=== PATIENT | male | born 1970 | race Caucasian/White ===

== ENCOUNTER 2019-12-31 02:55 | Emergency (ER) | payer OTHER ==
[~2019-12-31] VITALS: Ht 172.7 cm; Wt 65.8 kg
--- NOTE | 2019-12-31 03:08 | NUR ---
Pt in room 2B is homeless. AO x 4. Brought himself in to ER because of neck pain, cannot recall when exactly it started but has been experiencing it "few" days [employer]. Pt describes it as acute and worsens when neck is being turned, rates pain as 5-7/10. Respirations are even and unlabored. Not in any acute distress. BP: 149/101. HR: 113. No GI/ complaints. Ambulates in steady gait. Bed locked in position. Fall and safety precautions maintained.
[2019-12-31] MEDS ORDERED: IV NORMAL SALINE 1000 ML BAG IV ONE ×2 (03:15→07:15)
[2019-12-31] MEDS ORDERED: HYDROCODONE/APAP 5-325MG TABLET PO ONE (03:15)
--- NOTE | 2019-12-31 03:15 | NUR ---
Dr. Phillips at bedside for MSE.
[2019-12-31 03:38] LABS: BASOPHILS # (AUTO) 0.1 K/uL (0.0-8.0); BASOPHILS % (AUTO) 0.5 % (0.0-2.0); EOSINOPHILS # (AUTO) 0.4 K/uL (0.0-0.7); EOSINOPHILS % (AUTO) 1.8 % (0.0-7.0); HEMOGLOBIN 13.6 g/dL (12.5-16.3); LYMPHOCYTES # (AUTO) 2.2 K/uL (20.0-40.0); LYMPHOCYTES % (AUTO) 10.5 % (20.5-51.5); MEAN CORPUSCULAR HEMOGLOBIN 30.5 uug (23.8-33.4); MEAN CORPUSCULAR HGB CONC 33 g/dL (32.5-36.3); MEAN CORPUSCULAR VOLUME 92.3 fL (73.0-96.2); MONOCYTES # (AUTO) 1.4 K/uL (2.0-10.0); MONOCYTES % (AUTO) 6.3 % (0.0-11.0); NEUTROPHILS # (AUTO) 17.4 K/uL (1.8-8.9); NEUTROPHILS % (AUTO) 80.9 % (38.5-71.5); PLATELET COUNT (AUTO) 435 K/uL (152-348); RED BLOOD CELL COUNT(AUTO) 4.44 MIL/uL (4.06-5.63); WHITE BLOOD COUNT (AUTO) 21.5 K/uL (3.6-10.2)
[2019-12-31] MEDS ORDERED: HYDROCODONE/APAP 5-325MG TABLET ONE (03:43)
[2019-12-31 03:52] LABS: BILIRUBIN,DIRECT 0.1 mg/dL (0.0-0.2); BILIRUBIN,TOTAL 0.4 mg/dL (0.2-1.0); CREATININE 1.1 mg/dL (0.6-1.3); POTASSIUM 4.1 mmol/L (3.5-5.1); TOTAL PROTEIN, SERUM 7.1 g/dL (6.4-8.2)
--- NOTE | 2019-12-31 04:09 | NUR ---
RN witnessed pt signing Consent form for contrast. Pt down for CT with contrast, stable condition.
[2019-12-31] MEDS ORDERED: VANCOMYCIN IV 1,000 MG in IV DEXTROSE 5% 250 ML IV ONE (04:15)
[2019-12-31] MEDS ORDERED: IV NORMAL SALINE 250 ML IV ONE (04:18)
[2019-12-31] MEDS ORDERED: SWABABLE VALVE TRANSFER SET EA MC ONE (04:18)
[2019-12-31] MEDS ORDERED: IOHEXOL 300MG/ML 100 ML INFUS..BTL ONE (04:18)
[2019-12-31] MEDS ORDERED: VANCOMYCIN IV 200 ML ONE (04:26)
--- NOTE | 2019-12-31 04:34 | NUR ---
Pt back from CT in stable condition.
[2019-12-31] MEDS ORDERED: CEFTRIAXONE 1 G in IV DEXTROSE 5% 50 ML IV ONE (05:00)
[2019-12-31] MEDS ORDERED: CEFTRIAXONE /D5W 50ML IVPB **ER PYXIS IV ONE (05:04)
--- NOTE | 2019-12-31 05:13 | NUR ---
Dr Phillips wants to admit patient for Cellulitis/Poss Neck Abscess. Insurance is being contacted by foreign exchange clerk at this time.
--- NOTE | 2019-12-31 05:30 | NUR ---
Dr. Phillips speaking to [facility] for clinicals. Per Dr. Phillips, he is stable for transfer and it would be more beneficial for patient to be transferred for him to be able to see an ENT. Awaiting insurance call back.
--- NOTE | 2019-12-31 06:39 | NUR ---
Received call from [facility] who stated that pt will be admitted to their hospital. Provided information of MD and call back information. Awaiting [facility] MD call back and Room #.
--- NOTE | 2019-12-31 06:43 | NUR ---
Called [facility] ([facility]) to confirm who is providing transportation for patient. Per [facility], we can arrange transportation and he will give AUTH # for it.
--- NOTE | 2019-12-31 06:58 | NUR ---
Report given to Lucrecia MCKEON.
--- NOTE | 2019-12-31 07:22 | NUR ---
PATIENT IS AWAKE AND ALERT WITH NO NEW COMPLAINTS. AWAITING TRANSFER TO OTHER HOSPITAL.
--- NOTE | 2019-12-31 09:33 | NUR ---
AUTOMOTIVE PARTS INTERPRETER FROM [facility] CALLED AND STATED PT WILL GO TO ROOM 202B AND TO CALL REPORT WHICH I WILL DO NOW. LUDIN EMMANUEL CALLED AND WILL TRANSPORT PATIENT AT 1200 TODAY.
--- NOTE | 2019-12-31 10:09 | NUR ---
PATIENT SITTING UP EATING BREAKFAST WITH NO COMPLAINTS. WILL BE GOING TO [facility] AROUND NOON TODAY. CALLED TO GIVE THEM REPORT MULTIPLE TIMES BUT THEY DONT ANSWER THE PHONE. WILL CALL COORDINATOR AND REPORT THIS....
--- NOTE | 2019-12-31 10:18 | NUR ---
REPORT GIVEN TO HELIO MCKEON AT [facility] [phone]
[2019-12-31] MEDS ORDERED: HYDROCODONE/APAP 10-325 MG TABLET PO ONE (11:45)
[2019-12-31] MEDS ORDERED: HYDROCODONE/APAP 10-325 MG TABLET ONE (11:45)
--- NOTE | 2019-12-31 12:21 | NUR ---
[facility] ambulance here to transport patient to other hospital. Report given to Koby EMT. patient ambulated to bathroom with steady gait and voided urine.
== END 2019-12-31 12:33 | disposition short-term general hospital (02) ==
LOC: ER 03:04
DX: M60.08 Infective myositis, other site (principal); L03.221 Cellulitis of neck; Z59.0 Homelessness; F17.200 Nicotine dependence, unspecified, uncomplicated; M50.30 Other cervical disc degeneration, unspecified cervical region
CPT/HCPCS: 36415; 70491; 80048; 80076; 83605; 84145; 85025; 85730; 87040 ×2; 96361; 96365; 96375; 99285; J0696; J3370; Q9967; A4663; J7030; J7050